=== PATIENT | female | born 1995 | race Two or more races ===

== ENCOUNTER 2018-08-02 12:51 | Emergency (ER) | payer MEDICAID, OTHER ==
[~2018-08-02] VITALS: Ht 154.9 cm; Wt 45.4 kg
[2018-08-02] MEDS ORDERED: GLUCAGON HYDROCHLORIDE (RDNA) 1 MG VIAL ONE (13:21)
[2018-08-02] MEDS ORDERED: GLUCAGON HYDROCHLORIDE (RDNA) 1 MG VIAL IM ONE ×2 (13:30→14:30)
[2018-08-02] MEDS ORDERED: BENZOCAINE (DENTAL) 20 % SPRAY 60ML MT ONE (15:15)
[2018-08-02] MEDS ORDERED: SODIUM CHLORIDE LOCK 10 ML ONE ×2 (15:15→15:16)
[2018-08-02] MEDS ORDERED: LIDOCAINE VISCOUS 2% 15ML UD ONE (15:15)
[2018-08-02] MEDS ORDERED: NALOXONE HCL 0.4 MG/ML VIAL ONE (15:15)
[2018-08-02] MEDS ORDERED: diphenhdrAMINE HCL 50 MG/1 ML VL ONE (15:16)
[2018-08-02] MEDS ORDERED: MIDAZOLAM HCL 1MG/1ML-2 ML VIAL ONE (15:27)
[2018-08-02] MEDS ORDERED: MIDAZOLAM HCL 1MG/1ML-2 ML VIAL IV ONE (15:30)
[2018-08-02] MEDS: MIDAZOLAM HCL 5 MG/ML-1ML VIAL ONE ×3 (15:55→16:04)
[2018-08-02] MEDS: fentaNYL CITRATE 100 MCG/2 ML VL ONE ×2 (15:55→16:01)
[2018-08-02 17:47] VITALS: BP 100/78
== END 2018-08-02 18:06 | disposition home or self-care (01) ==
LOC: ER 12:51
DX: T18.128A Food in esophagus causing other injury, initial encounter (principal); G80.9 Cerebral palsy, unspecified; Z88.0 Allergy status to penicillin; X58.XXXA Exposure to other specified factors, initial encounter; Y93.89 Activity, other specified; Y99.8 Other external cause status; Y92.89 Other specified places as the place of occurrence of the external cause
CPT/HCPCS: 36415; 43247; 84702; 96372; 99285; A6257; C1773; J1200; J1610; J2250; J3010